=== PATIENT | male | born 1975 | race Caucasian/White ===

== ENCOUNTER 2021-02-01 10:07 | Emergency (ER) | payer OTHER | END 2021-02-01 11:23 | disposition home or self-care (01) | LOC: FER 10:07 | DX: S63.601A Unspecified sprain of right thumb, initial encounter (principal); W23.1XXA Caught, crushed, jammed, or pinched between stationary objects, initial encounter; Y92.009 Unspecified place in unspecified non-institutional (private) residence as the place of occurrence of the external cause | CPT/HCPCS: 73130 ==